=== PATIENT | female | born 1990 | race Caucasian/White ===

== ENCOUNTER 2019-05-28 22:36 | Emergency (ER) | payer OTHER ==
[~2019-05-28] VITALS: Ht 177.8 cm; Wt 86.6 kg
--- NOTE | 2019-05-28 22:38 | ED.ADGEN ---
Past History Past Medical History: Gallstones, GERD Past Medical History Colon mass - surgery Adult General Chief Complaint Chief Complaint .. " I think it my gastritis or gall bladder.. I due to fly home tomorrow.. I need to be fixed... before I go.... I had gastritis all through .. my ... and both my parents had there gall bladders out by are 40... I did eat pizza at 5 pm.. and it made me more sick.. I then ate a cheese burger and 8 pm to try and feel better.. but all that did was make my pain worse.. HPI HPI Patient is a 29 year old female dependent who presents with above hx complaints right upper quadrant / epigastric pain. Pt. rates the pain as severe. Pain Radiates to Rt. shoulder area. Pt. pain worse after eating. Pt. hx GERD and was on Prilosec through entire . Delivery in February. Pt. did eat pizza tonight 1700 hrs. and cheeseburger at 2000 hours Pt. has past hx colorectal surgery as a child. Patient denies any history of bad food. Patient denies any travel or specific ill contacts. No history of trauma. No history immunosuppression. History of tarry stools. Review of Systems Review of Systems Constitutional: Denies fever or chills [] Eyes: Denies change in visual acuity, redness, or eye pain [] HENT: Denies nasal congestion or sore throat [] Respiratory: Denies cough or shortness of breath [] Cardiovascular: No additional information not addressed in HPI [] GI: Complaints of severe epigastric and right upper quadrant abdominal pain, nausea,. Denies vomiting, bloody stools or diarrhea [] : Denies dysuria or hematuria [] Musculoskeletal: Denies back pain or joint pain [] Integument: Denies rash or skin lesions [] Neurologic: Denies headache, focal weakness or sensory changes [] Endocrine: Denies polyuria or polydipsia [] All other systems were reviewed and found to be within normal limits, except as documented in this note. Family History Family History Gallbladder disease in both parents by age 40 Current Medications Current Medications Current Medications Medications (Trade) Dose Ordered Sig/Ray Start Time Stop Time Status Last Admin Dose Admin Ceftriaxone Sodium 1 gm/ Sodium Chloride 50 ml @ 100 mls/hr 1X ONCE 05/29/19 01:15 05/29/19 01:44 DC 05/29/19 02:46 100 MLS/HR Ceftriaxone Sodium (Rocephin) 1 gm STK-MED ONCE 05/29/19 02:16 05/29/19 02:17 DC Famotidine (Pepcid Vial) 20 mg 1X ONCE 05/28/19 23:15 05/28/19 23:16 DC 05/28/19 23:37 20 MG Info (Do NOT chart on this entry -- for MONITORING) 1 each PRN DAILY PRN 05/29/19 01:30 05/31/19 01:29 Iohexol (Omnipaque 240 Mg/ml) 30 ml 1X ONCE 05/29/19 01:15 05/29/19 01:17 DC 05/29/19 02:32 30 ML Iohexol (Omnipaque 300 Mg/ml) 75 ml 1X ONCE 05/29/19 01:15 05/29/19 01:17 DC 05/29/19 02:33 75 ML Lactated Ringer's 1,000 ml @ 1,000 mls/hr Q1H 05/28/19 23:15 05/29/19 00:14 DC 05/28/19 23:36 1,000 MLS/HR Magnesium Hydroxide (Milk Of Magnesia) 2,400 mg 1X ONCE 05/28/19 23:15 05/28/19 23:16 DC 05/28/19 23:36 2,400 MG Morphine Sulfate (Morphine 10mg Syringe) 10 mg 1X ONCE 05/28/19 23:15 05/28/19 23:16 DC 05/29/19 00:02 10 MG Ondansetron HCl (Zofran) 8 mg 1X ONCE 05/28/19 23:15 05/28/19 23:16 DC 05/28/19 23:37 8 MG Sodium Chloride 50 ml @ As Directed STK-MED ONCE 05/29/19 02:16 05/29/19 02:17 DC Allergies Allergies Allergies Coded Allergies Type Severity Reaction Last Updated Verified amoxicillin Allergy Mild Nausea and Vomiting 05/28/19 Yes clavulanic acid Allergy Mild Nausea and Vomiting 05/28/19 Yes nitrofurantoin Allergy Mild Nausea and Vomiting 05/28/19 Yes Physical Exam Physical Exam Constitutional: in acute distress, non-toxic appearance. [] HENT: Normocephalic, atraumatic, bilateral external ears normal, oropharynx moist, no oral exudates, nose normal. [] Eyes: PERRLA, EOMI, conjunctiva normal, no discharge. [] Neck: Normal range of motion, no tenderness, supple, no stridor. [] Cardiovascular: Bradycardia Heart rate regular rhythm, no murmur [] Lungs & Thorax: Bilateral breath sounds clear to auscultation [] Abdomen: Bowel sounds normal, soft, epigastric and right upper quadrant tenderness, no masses, no pulsatile masses. [] Declines rectal at this time. Rebound to right upper quadrant. Skin: Warm, dry, no erythema, no rash. [] Back: No tenderness, no CVA tenderness. [] Extremities: No tenderness, no cyanosis, no clubbing, ROM intact, no edema. []No Psoas sign. Neurologic: Alert and oriented X 3, normal motor function, normal sensory function, no focal deficits noted. [] Psychologic: Affect anxious, judgement normal, mood normal. [] Current Patient Data Vital Signs Vital Signs Date Time Temp Pulse Resp B/P (MAP) Pulse Ox O2 Delivery O2 Flow Rate FiO2 05/29/19 00:19 98.0 60 20 100 Room Air Lab Results Laboratory Tests Test 05/28/19 22:55 05/28/19 23:30 05/29/19 01:00 Urine Collection Type Unknown Urine Color Straw Urine Clarity Clear Urine pH 7.0 Urine Specific [place] 1.020 Urine Protein Neg (NEG-TRACE) Urine Glucose (UA) Neg mg/dL (NEG) Urine Ketones (Stick) Neg mg/dL (NEG) Urine Blood Trace (NEG) Urine Nitrite Neg (NEG) Urine Bilirubin Neg (NEG) Urine Urobilinogen Dipstick 0.2 mg/dL (0.2 mg/dL) Urine Leukocyte Esterase Trace (NEG) Urine RBC Occ /HPF (0-2) Urine WBC 1-4 /HPF (0-4) Urine Squamous Epithelial Cells Occ /LPF Urine Bacteria 0 /HPF (0-FEW) Urine Test Negative (NEG) Urine Opiates Screen Neg (NEG) Urine Methadone Screen Neg (NEG) Urine Barbiturates Neg (NEG) Urine Phencyclidine Screen Neg (NEG) Urine Amphetamine/Methamphetamine Neg (NEG) Urine Benzodiazepines Screen Neg (NEG) Urine Cocaine Screen Neg (NEG) Urine Cannabinoids Screen Neg (NEG) Urine Ethyl Alcohol Neg (NEG) White Blood Count 10.0 x10^3/uL (4.0-11.0) Red Blood Count 4.69 x10^6/uL (3.50-5.40) Hemoglobin 13.7 g/dL (12.0-15.5) Hematocrit 41.8 % (36.0-47.0) Mean Corpuscular Volume 89 fL (79-100) Mean Corpuscular Hemoglobin 29 pg (25-35) Mean Corpuscular Hemoglobin Concent 33 g/dL (31-37) Red Cell Distribution Width 12.6 % (11.5-14.5) Platelet Count 380 x10^3/uL (140-400) Neutrophils (%) (Auto) 58 % (31-73) Lymphocytes (%) (Auto) 32 % (24-48) Monocytes (%) (Auto) 6 % (0-9) Eosinophils (%) (Auto) 3 % (0-3) Basophils (%) (Auto) 1 % (0-3) Neutrophils # (Auto) 5.8 x10^3uL (1.8-7.7) Lymphocytes # (Auto) 3.1 x10^3/uL (1.0-4.8) Monocytes # (Auto) 0.6 x10^3/uL (0.0-1.1) Eosinophils # (Auto) 0.3 x10^3/uL (0.0-0.7) Basophils # (Auto) 0.1 x10^3/uL (0.0-0.2) Sodium Level 140 mmol/L (136-145) Potassium Level 3.6 mmol/L (3.5-5.1) Chloride Level 104 mmol/L (98-107) Carbon Dioxide Level 29 mmol/L (21-32) Anion Gap 7 (6-14) Blood Urea Nitrogen 15 mg/dL (7-20) Creatinine 0.8 mg/dL (0.6-1.0) Estimated GFR (Cockcroft-Gault) 84.2 Glucose Level 102 mg/dL (70-99) H Calcium Level 10.3 mg/dL (8.5-10.1) H Total Bilirubin 0.3 mg/dL (0.2-1.0) Direct Bilirubin < 0.1 mg/dL (0.0-0.2) Aspartate Amino Transferase (AST) 30 U/L (15-37) Alanine Aminotransferase (ALT) 38 U/L (14-59) Alkaline Phosphatase 116 U/L (46-116) Troponin I Quantitative < 0.017 ng/mL (0-0.055) Total Protein 8.2 g/dL (6.4-8.2) Albumin 3.9 g/dL (3.4-5.0) Amylase Level 61 U/L (25-115) Lipase 239 U/L (73-393) Prothrombin Time 10.0 SEC (9.4-11.4) Prothrombin Time INR 1.0 (0.9-1.1) PTT 27 SEC (23-33) EKG EKG My interpretation EKG shows a sinus bradycardia 51 bpm.[] Radiology/Procedures Radiology/Procedures My interpretation of acute abdomen film shows[] no acute cardiopulmonary findings. No free air in the diaphragm. Nonspecific bowel gas pattern. There is [place] [address] IMAGING REPORT Signed PATIENT: ALLYSON ZIMMERMAN ACCOUNT: [id number] : 1990 LOCATION: ER AGE: 29 SEX: F EXAM STATUS: REG ER ORD. PHYSICIAN: ANALI ROBLES MD REASON: RUQ pain, biliary colic like pain, constipation. Hx:Gastritis PROCEDURE: CT ABD PELV W/ORAL&IV CONTRAST INDICATION: Abdomen pain COMPARISON: None. TECHNIQUE: Axial CT images obtained through the abdomen and pelvis with contrast. One or more of the following individualized dose reduction techniques were utilized for this examination: 1. Automated exposure control; 2. Adjustment of the mA and/or kV according to patient size; 3. Use of iterative reconstruction technique. FINDINGS: Abdominal aorta is not aneurysmal. There is some distention of the gallbladder with high density material layering within which could be from sludge or stones. No peripancreatic fluid collection. There is some suspected intrahepatic bile duct dilation. Spleen is unremarkable. Mild prominence of the left extrarenal pelvis. Urinary bladder is partially distended. Intrauterine device within the uterus. Mild prominence of the right renal pelvis. No definite radiopaque obstructive ureter stone. Moderate stool throughout the colon. The appendix measures approximately 5 mm without definite adjacent inflammatory changes. No dilated loops of bowel to suggest obstruction. There is some degenerative changes the spine including disc protrusion at L5-S1. IMPRESSION: 1. The gallbladder somewhat distended with suspected gallstones and sludge within. Would correlate with symptoms within the region it may be helpful to obtain a follow-up ultrasound to further evaluate for biliary disease given this finding. Is also some mild prominence of the intrahepatic bile ducts. 2. No evidence of bowel obstruction. No periappendiceal inflammation. Electronically signed by: Chari Barnes MD (05/29/2019 3:47 AM) [facility] DICTATED AND SIGNED BY: CHARI BARNES MD DATE: 05/29/19 9760 CC: ANALI ROBLES MD; PCP,NO ~ Course & Med Decision Making Course & Med Decision Making Pertinent Labs and Imaging studies reviewed. (See chart for details) Clear fluid diet only x 48 hrs. No solid or milk products. Take Zantac 150 twice a day. Consider EGD and complete a Biliary colic US study. Follow up with surgery for consult for cholecystectomy. Avoid high fat foods. Fatty foods will reproduce symptoms pharynx today. Zofran for nausea and vomiting. Follow- up. Follow up urine cultures. Take Keflex 500 three times a day. Push fluids. [] Final Impression Final Impression 1. Abdomen pain 2. Biliary colic- biliary sludge 3. History gastritis[] 4. Breast Feeding 5. Constipation 6. Mild UTI Dragon Disclaimer Dragon Disclaimer This electronic medical record was generated, in whole or in part, using a voice recognition dictation system. Discharge Summary Visit Information Final Diagnosis Problems Medical Problems: (1) Biliary colic Status: Acute (2) Pain in the abdomen Status: Acute Brief Hospital Course Allergies Allergies Coded Allergies Type Severity Reaction Last Updated Verified amoxicillin Allergy Mild Nausea and Vomiting 05/28/19 Yes clavulanic acid Allergy Mild Nausea and Vomiting 05/28/19 Yes nitrofurantoin Allergy Mild Nausea and Vomiting 05/28/19 Yes Vital Signs Vital Signs Date Time Temp Pulse Resp B/P (MAP) Pulse Ox O2 Delivery O2 Flow Rate FiO2 05/29/19 00:19 98.0 60 20 100 Room Air Lab Results Laboratory Tests Test 05/28/19 22:55 05/28/19 23:30 05/29/19 01:00 Urine Collection Type Unknown Urine Color Straw Urine Clarity Clear Urine pH 7.0 Urine Specific [place] 1.020 Urine Protein Neg (NEG-TRACE) Urine Glucose (UA) Neg mg/dL (NEG) Urine Ketones (Stick) Neg mg/dL (NEG) Urine Blood Trace (NEG) Urine Nitrite Neg (NEG) Urine Bilirubin Neg (NEG) Urine Urobilinogen Dipstick 0.2 mg/dL (0.2 mg/dL) Urine Leukocyte Esterase Trace (NEG) Urine RBC Occ /HPF (0-2) Urine WBC 1-4 /HPF (0-4) Urine Squamous Epithelial Cells Occ /LPF Urine Bacteria 0 /HPF (0-FEW) Urine Test Negative (NEG) Urine Opiates Screen Neg (NEG) Urine Methadone Screen Neg (NEG) Urine Barbiturates Neg (NEG) Urine Phencyclidine Screen Neg (NEG) Urine Amphetamine/Methamphetamine Neg (NEG) Urine Benzodiazepines Screen Neg (NEG) Urine Cocaine Screen Neg (NEG) Urine Cannabinoids Screen Neg (NEG) Urine Ethyl Alcohol Neg (NEG) White Blood Count 10.0 x10^3/uL (4.0-11.0) Red Blood Count 4.69 x10^6/uL (3.50-5.40) Hemoglobin 13.7 g/dL (12.0-15.5) Hematocrit 41.8 % (36.0-47.0) Mean Corpuscular Volume 89 fL (79-100) Mean Corpuscular Hemoglobin 29 pg (25-35) Mean Corpuscular Hemoglobin Concent 33 g/dL (31-37) Red Cell Distribution Width 12.6 % (11.5-14.5) Platelet Count 380 x10^3/uL (140-400) Neutrophils (%) (Auto) 58 % (31-73) Lymphocytes (%) (Auto) 32 % (24-48) Monocytes (%) (Auto) 6 % (0-9) Eosinophils (%) (Auto) 3 % (0-3) Basophils (%) (Auto) 1 % (0-3) Neutrophils # (Auto) 5.8 x10^3uL (1.8-7.7) Lymphocytes # (Auto) 3.1 x10^3/uL (1.0-4.8) Monocytes # (Auto) 0.6 x10^3/uL (0.0-1.1) Eosinophils # (Auto) 0.3 x10^3/uL (0.0-0.7) Basophils # (Auto) 0.1 x10^3/uL (0.0-0.2) Sodium Level 140 mmol/L (136-145) Potassium Level 3.6 mmol/L (3.5-5.1) Chloride Level 104 mmol/L (98-107) Carbon Dioxide Level 29 mmol/L (21-32) Anion Gap 7 (6-14) Blood Urea Nitrogen 15 mg/dL (7-20) Creatinine 0.8 mg/dL (0.6-1.0) Estimated GFR (Cockcroft-Gault) 84.2 Glucose Level 102 mg/dL (70-99) Calcium Level 10.3 mg/dL (8.5-10.1) Total Bilirubin 0.3 mg/dL (0.2-1.0) Direct Bilirubin < 0.1 mg/dL (0.0-0.2) Aspartate Amino Transf (AST/SGOT) 30 U/L (15-37) Alanine Aminotransferase (ALT/SGPT) 38 U/L (14-59) Alkaline Phosphatase 116 U/L (46-116) Troponin I Quantitative < 0.017 ng/mL (0-0.055) Total Protein 8.2 g/dL (6.4-8.2) Albumin 3.9 g/dL (3.4-5.0) Amylase Level 61 U/L (25-115) Lipase 239 U/L (73-393) Prothrombin Time 10.0 SEC (9.4-11.4) Prothromb Time International Ratio 1.0 (0.9-1.1) Activated Partial Thromboplast Time 27 SEC (23-33) Brief Hospital Course Ms. Zimmerman is a 29 old female who presented with biliary colic after pizza and cheese burger. Discharge Information Condition at Discharge: Improved, Stable Disposition/Orders: D/C to Home Dischare Medications Current Medications Lactated Ringer's 1,000 ml @ 1,000 mls/hr Q1H IV Last administered on 05/28/19at 23:36; Admin Dose 1,000 MLS/HR; Start 05/28/19 at 23:15; Stop 05/29/19 at 00:14; Status DC Ondansetron HCl (Zofran) 8 mg 1X ONCE IV Last administered on 05/28/19at 23:37; Admin Dose 8 MG; Start 05/28/19 at 23:15; Stop 05/28/19 at 23:16; Status DC Famotidine (Pepcid Vial) 20 mg 1X ONCE IVP Last administered on 05/28/19at 23:37; Admin Dose 20 MG; Start 05/28/19 at 23:15; Stop 05/28/19 at 23:16; Status DC Magnesium Hydroxide (Milk Of Magnesia) 2,400 mg 1X ONCE PO Last administered on 05/28/19at 23:36; Admin Dose 2,400 MG; Start 05/28/19 at 23:15; Stop 05/28/19 at 23:16; Status DC Morphine Sulfate (Morphine 10mg Syringe) 10 mg 1X ONCE SQ Last administered on 05/29/19at 00:02; Admin Dose 10 MG; Start 05/28/19 at 23:15; Stop 05/28/19 at 23:16; Status DC Iohexol (Omnipaque 240 Mg/ml) 30 ml 1X ONCE PO Last administered on 05/29/19at 02:32; Admin Dose 30 ML; Start 05/29/19 at 01:15; Stop 05/29/19 at 01:17; Status DC Iohexol (Omnipaque 300 Mg/ml) 75 ml 1X ONCE IV Last administered on 05/29/19at 02:33; Admin Dose 75 ML; Start 05/29/19 at 01:15; Stop 05/29/19 at 01:17; Status DC Ceftriaxone Sodium 1 gm/ Sodium Chloride 50 ml @ 100 mls/hr 1X ONCE IV Last administered on 05/29/19at 02:46; Admin Dose 100 MLS/HR; Start 05/29/19 at 01:15; Stop 05/29/19 at 01:44; Status DC Info (Do NOT chart on this entry -- for MONITORING) 1 each PRN DAILY PRN MC SEE COMMENTS; Start 05/29/19 at 01:30; Stop 05/31/19 at 01:29 Sodium Chloride 50 ml @ As Directed STK-MED ONCE .ROUTE ; Start 05/29/19 at 02 :16; Stop 05/29/19 at 02:17; Status DC Ceftriaxone Sodium (Rocephin) 1 gm STK-MED ONCE .ROUTE ; Start 05/29/19 at 02:16; Stop 05/29/19 at 02:17; Status DC Active Scripts Active Keflex (Cephalexin) 500 Mg Capsule 500 Mg PO TID 7 Days Acetaminophen 500 Mg Tablet 1,000 Mg PO QIDPRN PRN Zofran (Ondansetron Hcl) 8 Mg Tablet 8 Mg PO QIDPRN PRN Zantac (Ranitidine Hcl) 150 Mg Tablet 150 Mg PO BID 90 Days Dragon Disclaimer This chart was dictated in whole or in part using Voice Recognition software in a busy, high-work load, and often noisy Emergency Department environment. It may contain unintended and wholly unrecognized errors or omissions. ANALI ROBLES MD May 28, 2019 22:38
[2019-05-28] MEDS ORDERED: MAGNESIUM HYDROXIDE 2,400 MG/30 ML ORAL.SUSP. PO ONE (23:15)
[2019-05-28] MEDS ORDERED: ONDANSETRON PF 4 MG/2 ML VIAL. IV ONE (23:15)
[2019-05-28] MEDS ORDERED: MORPHINE SULFATE 10 MG/ML SYRINGE. SQ ONE (23:15)
[2019-05-28] MEDS ORDERED: IV RINGERS SOLUTION,LACTATED 1,000 ML IV SCH (23:15)
[2019-05-28] MEDS ORDERED: FAMOTIDINE 20 MG/2 ML VIAL IVP ONE (23:15)
[2019-05-28 23:18] LABS: BARBITURATES NEG (NEG); BENZODIAZEPINES NEG (NEG); CANNABINOIDS NEG (NEG); COCAINE NEG (NEG); METHADONE NEG (NEG); OPIATES NEG (NEG); PHENCYCLIDINE NEG (NEG)
[2019-05-28 23:22] LABS: AMPHETAMINE/METHAMPHETAMINE NEG (NEG)
[2019-05-28 23:25] LABS: BACTERIA,URINE 0 /HPF (0-FEW); BILIRUBIN,URINE NEG (NEG); CLARITY,URINE CLEAR; COLOR,URINE STRAW; GLUCOSE,URINE NEG (NEG); NITRITE,URINE NEG (NEG); RBC,URINE OCC /HPF (0-2); SQUAMOUS EPITHELIAL CELL,UR OCC /LPF; UROBILINOGEN,URINE 0.2 mg/dL (0.2 mg/dL)
[2019-05-28 23:51] LABS: U PREG PATIENT NEGATIVE (NEG)
[2019-05-29 00:14] LABS: BASO # 0.1 x10^3/uL (0.0-0.2); BASO % 1 % (0-3); EOS # 0.3 x10^3/uL (0.0-0.7); EOS % 3 % (0-3); HEMATOCRIT 41.8 % (36.0-47.0); HEMOGLOBIN 13.7 g/dL (12.0-15.5); LYMPH # 3.1 x10^3/uL (1.0-4.8); LYMPH % 32 % (24-48); MEAN CORPUSCULAR HEMOGLOBIN 29 pg (25-35); MEAN CORPUSCULAR HGB CONC 33 g/dL (31-37); MEAN CORPUSCULAR VOLUME 89 fL (79-100); MONO # 0.6 x10^3/uL (0.0-1.1); MONO % 6 % (0-9); NEUT # 5.8 x10^3uL (1.8-7.7); NEUT % 58 % (31-73); PLATELET COUNT 380 x10^3/uL (140-400); RED BLOOD COUNT 4.69 x10^6/uL (3.50-5.40); RED CELL DISTRIBUTION WIDTH 12.6 % (11.5-14.5)
[2019-05-29 00:19] VITALS: BP 127/77
[2019-05-29 00:28] LABS: ALBUMIN 3.9 g/dL (3.4-5.0); ALK PHOS 116 U/L (46-116); ALT (SGPT) 38 U/L (14-59); AMYLASE 61 U/L (25-115); ANION GAP 7 (6-14); AST (SGOT) 30 U/L (15-37); BLOOD UREA NITROGEN 15 mg/dL (7-20); CALCIUM 10.3 mg/dL (8.5-10.1); CARBON DIOXIDE 29 mmol/L (21-32); CHLORIDE 104 mmol/L (98-107); CREATININE 0.8 mg/dL (0.6-1.0); DIRECT BILIRUBIN < 0.1 mg/dL (0.0-0.2); GFR 84.2; GLUCOSE 102 mg/dL (70-99); LIPASE 239 U/L (73-393); SODIUM 140 mmol/L (136-145); TOTAL BILIRUBIN 0.3 mg/dL (0.2-1.0); TOTAL PROTEIN 8.2 g/dL (6.4-8.2)
[2019-05-29 00:29] LABS: POTASSIUM 3.6 mmol/L (3.5-5.1)
[2019-05-29] MEDS ORDERED: IOHEXOL 300 MG/ML 75 ML VIAL. IV ONE (01:15)
[2019-05-29] MEDS ORDERED: IOHEXOL 240 MG/ML 50ML VIAL. PO ONE (01:15)
[2019-05-29] MEDS ORDERED: CONTRAST GIVEN MC PRN (01:30)
[2019-05-29] MEDS ORDERED: cefTRIAXone SODIUM 1 GM VIAL ONE (02:16)
[2019-05-29] MEDS ORDERED: IV NORMAL SALINE 50ML 50 ML ONE (02:16)
[2019-05-29] MEDS ORDERED: RANI-376 PO (03:49)
[2019-05-29] MEDS ORDERED: ONDA8TAB9 PO (03:49)
[2019-05-29] MEDS ORDERED: ACET500T68 PO (03:49)
--- NOTE | 2019-05-29 03:49 | RAD ---
INDICATION: Abdomen pain COMPARISON: None. TECHNIQUE: Axial CT images obtained through the abdomen and pelvis with contrast. One or more of the following individualized dose reduction techniques were utilized for this examination: 1. Automated exposure control; 2. Adjustment of the mA and/or kV according to patient size; 3. Use of iterative reconstruction technique. FINDINGS: Abdominal aorta is not aneurysmal. There is some distention of the gallbladder with high density material layering within which could be from sludge or stones. No peripancreatic fluid collection. There is some suspected intrahepatic bile duct dilation. Spleen is unremarkable. Mild prominence of the left extrarenal pelvis. Urinary bladder is partially distended. Intrauterine device within the uterus. Mild prominence of the right renal pelvis. No definite radiopaque obstructive ureter stone. Moderate stool throughout the colon. The appendix measures approximately 5 mm without definite adjacent inflammatory changes. No dilated loops of bowel to suggest obstruction. There is some degenerative changes the spine including disc protrusion at L5-S1. IMPRESSION: 1. The gallbladder somewhat distended with suspected gallstones and sludge within. Would correlate with symptoms within the region it may be helpful to obtain a follow-up ultrasound to further evaluate for biliary disease given this finding. Is also some mild prominence of the intrahepatic bile ducts. 2. No evidence of bowel obstruction. No periappendiceal inflammation. Electronically signed by: Maged Allen MD (05/29/2019 3:47 AM) [facility]
[2019-05-29] MEDS ORDERED: CEPH-264 PO (04:21)
--- NOTE | 2019-05-29 07:52 | RAD ---
Examination: ACUTE ABDOMEN SERIES History: Right-sided abdominal pain Comparison/Correlation: None Findings: Supine and upright views of the abdomen were obtained. Frontal view the chest was obtained. Heart size and pulmonary vasculature are normal. No infiltrate, pleural effusion, or pneumothorax. Moderate quantity of stool in the colon is present. No bowel obstruction or extraluminal gas. No suspicious abdominal calcifications. Intrauterine device is seen. Impression: No acute process. Electronically signed by: Marcelo Andrew MD (05/29/2019 7:49 AM) [facility]
== END 2019-05-29 04:44 | disposition home or self-care (01) ==
LOC: ER 22:36
DX: K80.50 Calculus of bile duct without cholangitis or cholecystitis without obstruction (principal); K59.00 Constipation, unspecified; N39.0 Urinary tract infection, site not specified; K21.9 Gastro-esophageal reflux disease without esophagitis; Z88.1 Allergy status to other antibiotic agents; Z88.8 Allergy status to other drugs, medicaments and biological substances
CPT/HCPCS: 36415; 74022; 74177; 80048; 80076; 80307; 81001; 81025; 82150; 83690; 84484; 85025; 85610; 85730; 87086; 93005; 96365; 96372; 96375; 99285; J0696; J2270; J2405; J3490; J7120; Q9966; Q9967